=== PATIENT | male | born 1955 | race Caucasian/White ===

== ENCOUNTER 2020-11-16 14:31 | Observation (INO) | payer BC ==
--- NOTE | 2020-11-16 15:13 | ERPHSYRPT ---
- History of Present Illness Time Seen by Provider: 11/16/20 14:39 Source: patient, family Exam Limitations: no limitations Patient Subjective Stated Complaint: dizziness x 1 week Triage Nursing Assessment: pt to ED c/o new dizziness for one week. pt sees Dr Haney as pcp and he recommended pt come to ED for evalaution. pt denies new pain now. A&Ox3. ambulatory to room with SBA but states he usually falls to the L side. denies Hx stroke. Physician History: 64 years old male with a history of diabetes mellitus, chronic labyrinthitis/dizziness presented in the ER with increasing dizziness for almost 1 week especially with getting up and activity with tendency to fall on the left side without any actual fall. Denies any head injury but does have occasional headache mild to moderate. Denies any visual symptoms. No focal numbness tingling or weakness. No difficulty speech. Denies any chest pain palpitations or shortness of breath. Patient is sent in here by primary care for stroke work-up. Timing/Duration: week(s) (1), gradual onset, worse Severity: moderate Character of Deficits: other (Dizziness with tendency to fall on the left) Baseline/Normal Cognition: alert 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 Current Cognition: alert 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 Baseline Gait: walks w/o assistance Associated Symptoms: No confusion, No loss of consciousness, No nausea, No vo miting, No weakness, No insomnia, No muscle spasms, No numbness/tingling in legs/feet, No paresthesia, No ringing in ears, No slurred speech, No trouble walking Allergies/Adverse Reactions: No Known Drug Allergies Allergy (Verified 11/16/20 15:11) Home Medications: Acetaminophen [Tylenol 8 Hour] 650 mg PO Q4H PRN PRN 11/16/20 [History] Atorvastatin Calcium [Lipitor] 10 mg PO HS 11/16/20 [History] Ergocalciferol (Vitamin D2) [Vitamin D] 50,000 unit PO UD 11/16/20 [History] Fexofenadine HCl [Ana Maria] 180 mg PO BID 11/16/20 [History] Meloxicam [Mobic] 15 mg PO DAILY 11/16/20 [History] Sertraline HCl 100 mg PO DAILY 11/16/20 [History] Vit A/Vit C/Vit E/Zinc/Copper [Preservision Areds Softgel] 2 each PO DAILY 11/16/20 [History] Hx Tetanus, Diphtheria Vaccination/Date Given: Yes Hx Influenza Vaccination/Date Given: No Hx Pneumococcal Vaccination/Date Given: No Immunizations Up to Date: No Travel Risk - International Travel Have you traveled outside of the country in past 3 weeks: No - Coronavirus Screening Are you exhibiting any of the following symptoms?: No Close contact with a COVID-19 positive Pt in past 14-21 Days: No - Vaccine Status Have you recieved a Covid-19 vaccination: Yes [place] [employer]acer: Moderna - Vaccination Dates Date of 2cond Vaccination (if applicable): june - Review of Systems Constitutional: No Symptoms Eyes: No Symptoms Ears, Nose, & Throat: No Symptoms, Other (Chronic hearing loss) Respiratory: No Symptoms Cardiac: No Symptoms Abdominal/Gastrointestinal: No Symptoms Genitourinary Symptoms: No Symptoms Musculoskeletal: No Symptoms Skin: No Symptoms Neurological: Dizziness, Headache Psychological: No Symptoms Endocrine: No Symptoms Hematologic/Lymphatic: No Symptoms Immunological/Allergic: No Symptoms - Past Medical History Pertinent Past Medical History: Yes Neurological History: Other ENT History: No Pertinent History Cardiac History: No Pertinent History Respiratory History: Asthma, Sleep Apnea Endocrine Medical History: Diabetes Type II Musculoskeletal History: No Pertinent History GI Medical History: No Pertinent History History: No Pertinent History Psycho-Social History: Attention Deficit Disorder, Depression Male Reproductive Disorders: No Pertinent History Other Medical History: LABYRINTHITIS, L COLLES FX 2007; R CTS SURGERY, SEASONAL ALLERGIES - Past Surgical History Past Surgical History: Yes Neuro Surgical History: No Pertinent History Cardiac: No Pertinent History Respiratory: No Pertinent History Gastrointestinal: No Pertinent History Genitourinary: No Pertinent History Musculoskeletal: Orthopedic Surgery Male Surgical History: Vasectomy Other Surgical History: LEFT WRIST REPAIR. TONSILS ET ADNOIDS - Social History Smoking Status: Never smoker Exposure to second hand smoke: Yes Drug Use: none Patient Lives Alone: No - Nursing Vital Signs Nursing Vital Signs: Initial Vital Signs Temperature 96.7 F 11/16/20 14:48 Pulse Rate 85 11/16/20 14:48 Respiratory Rate 14 11/16/20 14:48 Blood Pressure 131/108 11/16/20 14:48 O2 Sat by Pulse Oximetry 96 11/16/20 14:48 Pain Scale Pain Intensity 0 - [place] Coma Scale Best Eye Response (Quentin): (4) open spontaneously Best Verbal Response ([place]): (5) oriented Best Motor Response ([place]): (6) obeys commands Quentin Total: 15 - Physical Exam General Appearance: no apparent distress, alert Eye Exam: left eye: abnormal pupil (More dilated than the right 1 but responding to light and accommodation), bilateral eye: normal inspection, EOMI Ears, Nose, Throat Exam: normal ENT inspection, TMs normal, pharynx normal, moist mucous membranes Neck Exam: normal inspection, non-tender, supple, full range of motion Respiratory: normal breath sounds, lungs clear Cardiovascular: regular rate/rhythm, normal heart sounds Gastrointestinal: soft, normal bowel sounds, No tenderness Back Exam: normal inspection, normal range of motion Extremity Exam: normal inspection, normal range of motion, pelvis stable Mental Status: alert, 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, 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 Exam: normal speech, No normal hearing, No facial asymmetry, No facial droop Coordination/Gait: normal finger to nose, normal gait, normal cerebellar function, negative Romberg's sign Motor/Sensory: no motor deficit, no sensory deficit, no pronator drift, negative Babinski's sign DTR: bicep (R): 2+, bicep (L): 2+, knee (R): 2+, knee (L): 2+ Skin Exam: normal color SpO2 Interpretation: normal SpO2: 96 O2 Delivery: Room Air Ordered Tests: Medication Summary Discontinued Medications Generic Name Dose Route Start Last Admin Trade Name Freq PRN Reason Stop Dose Admin Acetaminophen 650 mg 11/16/20 22:04 Tylenol 325 Mg PO 12/16/20 22:03 Q4H PRN PRN PAIN AND/OR FEVER Albuterol/Ipratropium 3 ml 11/16/20 22:04 Duoneb 0.5-3 Mg/3 Ml Neb IH 12/16/20 22:03 Q4HPRN PRN SHORTNESS OF BREATH/WHEEZING Aspirin 324 mg 11/16/20 17:40 11/16/20 18:34 Baby Aspirin 81 Mg Chew PO 11/16/20 17:41 324 mg STAT ONE Administration Ergocalciferol 50,000 unit 11/19/20 10:00 Vitamin D2 PO 12/19/20 09:59 WEEKLY SAY Insulin Human Lispro 0 unit 11/16/20 22:04 11/18/20 08:27 Humalog SQ 12/16/20 22:03 7 unit UD PRN Administration HYPERGLYCEMIA Insulin Human Regular 6 unit 11/16/20 17:39 11/16/20 18:34 Humulin R IV 11/16/20 17:40 6 unit STAT ONE Administration Insulin Human Regular Confirm 11/16/20 18:33 Humulin R Administered 11/16/20 18:34 Dose 6 unit .ROUTE .STK-MED ONE Loratadine 10 mg 11/17/20 10:00 11/18/20 10:02 Claritin 10 Mg PO 12/17/20 09:59 10 mg DAILY SAY Administration Meloxicam 15 mg 11/17/20 10:00 11/18/20 10:02 Meloxicam PO 12/17/20 09:59 15 mg DAILY SAY Administration Metformin HCl 1,000 mg 11/17/20 22:00 11/17/20 21:52 Glucophage 500 Mg PO 12/17/20 21:59 1,000 mg HS SAY Administration Morphine Sulfate 2 mg 11/16/20 22:04 Morphine Sulfate 2 Mg Inj IV 11/21/20 22:03 Q4H PRN PRN PAIN Multivitamins/Minerals 2 tab 11/17/20 10:00 11/18/20 10:02 Ocuvite Tablet PO 12/17/20 09:59 2 tab DAILY SAY Administration Ondansetron HCl 4 mg 11/16/20 22:04 Zofran 4 Mg/2 Ml Vial IV 12/16/20 22:03 Q6H PRN PRN NAUSEA/VOMITING Pantoprazole Sodium 40 mg 11/17/20 10:00 11/18/20 10:02 Protonix 40 Mg Iv IV 12/17/20 09:59 40 mg Q24H10 SAY Administration Scopolamine HBr 1.5 mg 11/17/20 10:00 11/17/20 11:14 Transderm Scop 1.5mg Patch TOP 12/17/20 09:59 1.5 mg Q72H SAY Administration Sertraline HCl 100 mg 11/17/20 10:00 11/18/20 10:02 Zoloft 50 Mg Tablet PO 12/17/20 09:59 100 mg DAILY SAY Administration Simvastatin 10 mg 11/17/20 22:00 11/17/20 21:53 Zocor 10mg PO 12/17/20 21:59 10 mg HS SAY Administration Lab/Rad Data: Laboratory Result Diagrams 11/16/20 15:50 11/16/20 15:50 Laboratory Results 11/16/20 11/16/20 11/16/20 Range/Units 21:15 19:29 18:10 WBC (4.0-10.5) K/mm3 RBC (4.1-5.6) M/mm3 Hgb (12.5-18.0) gm/dl Hct (42-50) % MCV (78-100) fl MCH (26-32) pg MCHC (32-36) g/dl RDW (11.5-14.0) % Plt Count (150-450) K/mm3 MPV (7.5-11.0) fl Gran % (36.0-66.0) % Eos # (Auto) (0-0.5) Absolute Lymphs (auto) (1.0-4.6) Absolute Monos (auto) (0.0-1.3) Lymphocytes % (24.0-44.0) % Monocytes % (0.0-12.0) % Eosinophils % (0.00-5.0) % Basophils % (0.0-0.4) % Absolute Granulocytes (1.4-6.9) Basophils # (0-0.4) Sodium (137-145) mmol/L Potassium (3.5-5.1) mmol/L Chloride (98-107) mmol/L Carbon Dioxide (22-30) mmol/L Anion Gap (5-15) MEQ/L BUN (9-20) mg/dL Creatinine (0.66-1.25) mg/dL Estimated GFR ML/MIN Glucose (74-106) mg/dL POC Glucometer 218 H (74 to 106) mg/dL Calcium (8.4-10.2) mg/dL Magnesium (1.6-2.3) mg/dL Total Bilirubin (0.2-1.3) mg/dL AST (17-59) U/L ALT (0-50) U/L Alkaline Phosphatase (38-126) U/L Troponin I < 0.012 (0.000-0.034) ng/mL Serum Total Protein (6.3-8.2) g/dL Albumin (3.5-5.0) g/dL SARS-CoV-2 (PCR) NEGATIVE (NEGATIVE) 11/16/20 11/16/20 11/16/20 Range/Units 17:37 15:50 15:50 WBC (4.0-10.5) K/mm3 RBC (4.1-5.6) M/mm3 Hgb (12.5-18.0) gm/dl Hct (42-50) % MCV (78-100) fl MCH (26-32) pg MCHC (32-36) g/dl RDW (11.5-14.0) % Plt Count (150-450) K/mm3 MPV (7.5-11.0) fl Gran % (36.0-66.0) % Eos # (Auto) (0-0.5) Absolute Lymphs (auto) (1.0-4.6) Absolute Monos (auto) (0.0-1.3) Lymphocytes % (24.0-44.0) % Monocytes % (0.0-12.0) % Eosinophils % (0.00-5.0) % Basophils % (0.0-0.4) % Absolute Granulocytes (1.4-6.9) Basophils # (0-0.4) Sodium (137-145) mmol/L Potassium (3.5-5.1) mmol/L Chloride (98-107) mmol/L Carbon Dioxide (22-30) mmol/L Anion Gap (5-15) MEQ/L BUN (9-20) mg/dL Creatinine (0.66-1.25) mg/dL Estimated GFR ML/MIN Glucose (74-106) mg/dL POC Glucometer (74 to 106) mg/dL Calcium (8.4-10.2) mg/dL Magnesium 2.0 (1.6-2.3) mg/dL Total Bilirubin (0.2-1.3) mg/dL AST (17-59) U/L ALT (0-50) U/L Alkaline Phosphatase (38-126) U/L Troponin I < 0.012 < 0.012 (0.000-0.034) ng/mL Serum Total Protein (6.3-8.2) g/dL Albumin (3.5-5.0) g/dL SARS-CoV-2 (PCR) (NEGATIVE) 11/16/20 11/16/20 Range/Units 15:50 15:50 WBC 8.6 (4.0-10.5) K/mm3 RBC 4.33 (4.1-5.6) M/mm3 Hgb 13.2 (12.5-18.0) gm/dl Hct 41.4 L (42-50) % MCV 95.6 (78-100) fl MCH 30.5 (26-32) pg MCHC 31.9 L (32-36) g/dl RDW 13.1 (11.5-14.0) % Plt Count 218 (150-450) K/mm3 MPV 10.7 (7.5-11.0) fl Gran % 68.8 H (36.0-66.0) % Eos # (Auto) 0.24 (0-0.5) Absolute Lymphs (auto) 1.69 (1.0-4.6) Absolute Monos (auto) 0.73 (0.0-1.3) Lymphocytes % 19.6 L (24.0-44.0) % Monocytes % 8.5 (0.0-12.0) % Eosinophils % 2.8 (0.00-5.0) % Basophils % 0.3 (0.0-0.4) % Absolute Granulocytes 5.93 (1.4-6.9) Basophils # 0.03 (0-0.4) Sodium 135 L (137-145) mmol/L Potassium 4.5 (3.5-5.1) mmol/L Chloride 97 L (98-107) mmol/L Carbon Dioxide 27 (22-30) mmol/L Anion Gap 15.3 H (5-15) MEQ/L BUN 25 H (9-20) mg/dL Creatinine 0.90 (0.66-1.25) mg/dL Estimated GFR > 60.0 ML/MIN Glucose 431 H (74-106) mg/dL POC Glucometer (74 to 106) mg/dL Calcium 9.6 (8.4-10.2) mg/dL Magnesium (1.6-2.3) mg/dL Total Bilirubin 0.20 (0.2-1.3) mg/dL AST 17 (17-59) U/L ALT 17 (0-50) U/L Alkaline Phosphatase 80 (38-126) U/L Troponin I (0.000-0.034) ng/mL Serum Total Protein 6.9 (6.3-8.2) g/dL Albumin 4.0 (3.5-5.0) g/dL SARS-CoV-2 (PCR) (NEGATIVE) - Progress Progress: unchanged, re-examined Progress Note: 11/16/20 17:46 He is made stroke activate, he is out of the window for TPA. Prompt CT head is obtained which is negative for any acute findings. Work-up otherwise showed no acute ST elevations are rhythm changes. Negative initial troponins. Patient has a blood sugar of 400s, given IV insulin. Otherwise grossly unremarkable chemistries. [facility] neurology consult is obtained, recommended observation telemetry admission with MRI/MRA and stroke work-up. He is given full dose aspirin. Plan discussed with patient who understand and agrees with it. Discussed with Dr. Sanchez and patient is admitted for observation. Discussed with .: Nadine, Other (Dr. Moon [facility] neurology) Will see patient in: hospital (observation) Counseled pt/family regarding: lab results, diagnosis, rad results - Departure Departure Disposition: Observation Clinical Impression: Dizziness, Stroke-like symptom Condition: Stable Critical Care Time: No
--- NOTE | 2020-11-16 15:26 | XRAY ---
Indication: Stroke. Multiple contiguous axial images obtained through the head without contrast. Comparison: None Age-appropriate global atrophy and minimal degenerative micro-ischemia bilaterally. No acute intracranial hemorrhage, abnormal extra-axial fluid collection, or mass effect. Fourth ventricle is midline without hydrocephalus. Crump-white matter differentiation preserved. Bony calvarium intact. Visualized paranasal sinuses and mastoid air cells are clear. Impression: Atrophy and degenerative micro-ischemia within normal limits for patient's age. No acute intracranial abnormalities.
[2020-11-16 15:58] LABS: Absolute Neutrophil Ct (ANC) 5.93 (1.4-6.9); BASOPHIL % 0.3 % (0.0-0.4); Basophil (Absolute #) 0.03 (0-0.4); Eosinophil % 2.8 % (0.00-5.0); Eosinophil (Absolute #) 0.24 (0-0.5); Hematocrit 41.4 % (42-50); Hemoglobin 13.2 gm/dl (12.5-18.0); Lymphocyte (Absolute #) 1.69 (1.0-4.6); Lymphocytes % 19.6 % (24.0-44.0); Mean Cell Volume 95.6 fl (78-100); Mean Corpuscular Hemoglobin 30.5 pg (26-32); Mean Corpuscular Hgb Concent. 31.9 g/dl (32-36); Mean Platelet Volume 10.7 fl (7.5-11.0); Monocyte (Absolute #) 0.73 (0.0-1.3); Monocytes % 8.5 % (0.0-12.0); Neutrophil % 68.8 % (36.0-66.0); Platelet Count 218 K/mm3 (150-450); Red Blood Count 4.33 M/mm3 (4.1-5.6); Red Cell Distribution Width 13.1 % (11.5-14.0); White Blood Count 8.6 K/mm3 (4.0-10.5)
[2020-11-16 16:13] LABS: ALKALINE PHOSPHATASE 80 U/L (38-126); ANION GAP 15.3 MEQ/L (5-15); BLOOD UREA NITROGEN 25 mg/dL (9-20); CHLORIDE 97 mmol/L (98-107); Calcium 9.6 mg/dL (8.4-10.2); Carbon Dioxide 27 mmol/L (22-30); EST GLOMERULAR FILTRATION RATE > 60.0 ML/MIN; Glucose 431 mg/dL (74-106); Potassium 4.5 mmol/L (3.5-5.1); SGOT/AST 17 U/L (17-59); SGPT/ALT 17 U/L (0-50); SODIUM 135 mmol/L (137-145); Total Protein 6.9 g/dL (6.3-8.2)
--- NOTE | 2020-11-16 16:25 | XRAY ---
Indication: Dizziness. Stroke. Comparison: None Portable chest slightly underinflated and clear. Heart not enlarged. Bony thorax intact. Impression: Nonacute chest.
[2020-11-16] MEDS ORDERED: HUMULIN R IV ONE (17:39)
[2020-11-16] MEDS ORDERED: BABY ASPIRIN 81 MG CHEW PO ONE (17:40)
[2020-11-16] MEDS ORDERED: HUMULIN R ONE (18:33)
[2020-11-16] MEDS ORDERED: Zofran 4 MG/2 ML VIAL IV PRN (22:04)
[2020-11-16] MEDS ORDERED: MORPHINE SULFATE 2 MG INJ IV PRN (22:04)
[2020-11-16] MEDS ORDERED: DUONEB 0.5-3 MG/3 ml Neb IH PRN (22:04)
[2020-11-16] MEDS ORDERED: TYLENOL 325 MG PO PRN (22:04)
[2020-11-17 04:58] LABS: Absolute Neutrophil Ct (ANC) 5.76 (1.4-6.9); BASOPHIL % 0.4 % (0.0-0.4); Basophil (Absolute #) 0.04 (0-0.4); Eosinophil % 3.5 % (0.00-5.0); Eosinophil (Absolute #) 0.32 (0-0.5); Hematocrit 42.3 % (42-50); Hemoglobin 13.5 gm/dl (12.5-18.0); Lymphocyte (Absolute #) 2.35 (1.0-4.6); Lymphocytes % 25.4 % (24.0-44.0); Mean Cell Volume 94.6 fl (78-100); Mean Corpuscular Hemoglobin 30.2 pg (26-32); Mean Corpuscular Hgb Concent. 31.9 g/dl (32-36); Mean Platelet Volume 10.9 fl (7.5-11.0); Monocyte (Absolute #) 0.79 (0.0-1.3); Monocytes % 8.5 % (0.0-12.0); Neutrophil % 62.2 % (36.0-66.0); Platelet Count 223 K/mm3 (150-450); Red Blood Count 4.47 M/mm3 (4.1-5.6); White Blood Count 9.3 K/mm3 (4.0-10.5)
[2020-11-17 05:17] LABS: ALBUMIN 3.7 g/dL (3.5-5.0); ALKALINE PHOSPHATASE 76 U/L (38-126); ANION GAP 12.7 MEQ/L (5-15); BLOOD UREA NITROGEN 20 mg/dL (9-20); CHLORIDE 100 mmol/L (98-107); Calcium 9.3 mg/dL (8.4-10.2); Carbon Dioxide 28 mmol/L (22-30); Creatinine 1 0.77 mg/dL (0.66-1.25); EST GLOMERULAR FILTRATION RATE > 60.0 ML/MIN; Glucose 249 mg/dL (74-106); SGOT/AST 21 U/L (17-59); SGPT/ALT 15 U/L (0-50); SODIUM 137 mmol/L (137-145); Total Protein 6.6 g/dL (6.3-8.2)
[2020-11-17 07:01] LABS: Appearance CLEAR (CLEAR); Bilirubin NEGATIVE (NEGATIVE); Blood NEGATIVE Ery/ul (0-5); Glucose >=500 mg/dL (NEGATIVE); Ketones TRACE (NEGATIVE); Leukocyte Esterase NEGATIVE (NEGATIVE); Nitrite NEGATIVE (NEGATIVE); Protein,Urine Dip NEGATIVE (Negative); Specific Gravity 1.017 (1.005-1.025); Urobilinogen NEGATIVE mg/dL (0-1)
[2020-11-17 07:06] LABS: Bacteria NONE SEEN /HPF (NEGATIVE)
[2020-11-17] MEDS ORDERED: NON-FORMULARY ITEM (Meloxicam [Mobic] 15 MG) PO SCH (10:00)
[2020-11-17] MEDS ORDERED: VIT C PO SCH (10:00)
[2020-11-17] MEDS ORDERED: ZINC PO SCH (10:00)
[2020-11-17] MEDS ORDERED: NON-FORMULARY ITEM (Fexofenadine Hcl [Allegra] 180 MG) PO SCH (10:00)
[2020-11-17] MEDS ORDERED: COPPER PO SCH (10:00)
[2020-11-17] MEDS ORDERED: Transderm Scop 1.5MG Patch TOP SCH (10:00)
[2020-11-17] MEDS ORDERED: VIT E PO SCH (10:00)
[2020-11-17] MEDS ORDERED: VIT A PO SCH (10:00)
[2020-11-17] MEDS ORDERED: NON-FORMULARY ITEM (Sertraline Hcl [Sertraline Hcl] 100 MG) PO SCH ×2 (10:00)
--- NOTE | 2020-11-17 11:01 | XRAY ---
Indication: Dizziness. Stroke symptoms. Two-dimensional sonogram and color Doppler imaging of the carotid arteries of the neck performed. Comparison: None Examination of the right carotid circulation demonstrates very minimal soft plaquing at the level of bulb. Remaining common carotid, internal carotid, and external carotid arteries are widely patent. PSV of the CCA is 84 cm/s. PSV of the ICA is 79 cm/s. ICA/CCA ratio is 0.9. Normal antegrade vertebral artery flow. Examination of the left breast circulation demonstrates very minimal tiny calcified plaquing in the common carotid artery and minimal soft plaquing at the level of the bulb and origin external carotid artery. Remaining internal carotid artery widely patent. PSV of the CCA is 94 cm/s. PSV of the ICA is 72 cm/s. ICA/CCA ratio is 0.8. Normal antegrade vertebral artery flow. Impression: Very minimal arteriosclerotic plaquing bilaterally as detailed. Velocity measurements and ratios are also negative for hemodynamically significant flow-limiting stenosis.
[2020-11-17] MEDS: CLARITIN 10 MG PO SCH (11:10)
[2020-11-17] MEDS: ZOLOFT 50 MG TABLET PO SCH (11:10)
[2020-11-17] MEDS: MELOXICAM PO SCH (11:10)
[2020-11-17] MEDS: PROTONIX 40 MG IV IV SCH (11:10)
[2020-11-17] MEDS: Ocuvite Tablet PO SCH (11:11)
[2020-11-17] MEDS: HUMALOG SQ PRN ×2 (12:39→21:55)
--- NOTE | 2020-11-17 14:58 | XRAY ---
Indication: Dizziness, nausea, and unsteady gait. Possible CVA. Sagittal, coronal, and axial MRI brain performed without contrast using T1, T2, FLAIR, diffusion, and ADC sequences. Comparison: None Age-appropriate global atrophy and a few periventricular petechial degenerative micro-ischemia signal. No acute intracranial hemorrhage, abnormal extra-axial fluid collection, or mass effect. Diffusion images are negative for restricted signal. Fourth ventricle is midline without hydrocephalus. 7/8 cranial nerve complex bilaterally symmetric. Normal flow void signal within the major intracerebral circulation. Normal-appearing craniocervical junction and sella turcica. Impression: 1. Atrophy and very minimal degenerative micro-ischemia within normal limits for patient's age. 2. No acute intracranial abnormalities or evidence for evolving large vessel territorial stroke.
--- NOTE | 2020-11-17 15:02 | XRAY ---
Indication: Dizziness, nausea, and unsteady gait. Possible CVA. Multi-slab 3-D [id number] MRA brain performed. Comparison: None MRA neck reported separately. Distal internal carotid arteries are bilaterally symmetric without critical stenosis, obstruction, or AV malformation. Normal carotid terminus with normal branching A1 and M1 segments bilaterally. Anatomic variant for origin of the right posterior cerebral artery. More distal anterior cerebral, middle cerebral and left posterior to indicating arteries are normal in MRA appearance. Normal MRA appearance to the basilar artery, left posterior cerebral, and left/right superior cerebellar arteries. Impression: Anatomic variant for origin right posterior cerebral artery. Remaining MRA brain is negative.
--- NOTE | 2020-11-17 15:04 | XRAY ---
Indication: Dizziness, nausea, and unsteady gait. Possible CVA. Multi-slab 3-D [id number] MRA neck performed. Comparison: None. There is carotid ultrasound of the same day. Normal MRA appearance to the common carotid, carotid bulb, internal carotid, and external carotid arteries bilaterally. Vertebral arteries demonstrates a dominant right vertebral artery. No critical stenosis, obstruction, or AV malformation. MRA brain reported separately. Impression: MRA neck is negative.
[2020-11-17] MEDS ORDERED: Glucophage 500 MG PO SCH (22:00)
[2020-11-17] MEDS ORDERED: Zocor 10MG PO SCH (22:00)
[2020-11-17] MEDS ORDERED: NON-FORMULARY ITEM (Atorvastatin Calcium [Lipitor] 10 MG) PO SCH (22:00)
[2020-11-18 07:56] VITALS: BP 115/66; PULSE 73; O2SAT 96
[2020-11-18] MEDS: HUMALOG SQ PRN (08:27)
[2020-11-18] MEDS: Ocuvite Tablet PO SCH (10:02)
[2020-11-18] MEDS: MELOXICAM PO SCH (10:02)
[2020-11-18] MEDS: CLARITIN 10 MG PO SCH (10:02)
[2020-11-18] MEDS: PROTONIX 40 MG IV IV SCH (10:02)
[2020-11-18] MEDS: ZOLOFT 50 MG TABLET PO SCH (10:02)
[2020-11-19] MEDS ORDERED: VITAMIN D2 PO SCH (10:00)
--- NOTE | 2020-11-20 13:47 | ECHO ---
Transthoracic echocardiographic examination and color Doppler was done on 11/17/2020. INDICATION: Dizzy spells, transient ischemic attack symptoms. IMPRESSION: 1) NO REGIONAL WALL MOTION ABNORMALITY. ESTIMATED GLOBAL LEFT VENTRICULAR EJECTION FRACTION BETWEEN 60 AND 65%. 2) TRACE MITRAL REGURGITATION. 3) TRACE TRICUSPID REGURGITATION. RIGHT VENTRICULAR SYSTOLIC PRESSURE OF 24 MMHg.. 4) LEFT VENTRICULAR HYPERTROPHY. The left ventricle is visualized and demonstrated adequate motion of all the segments. Estimated global left ventricular ejection fraction of around 60 to 65%. There is concentric left ventricular hypertrophy. The mitral valve is seen and this opens adequately. There is trace mitral regurgitation. Left atrium is normal. The aortic valve opens adequately. The right side chambers are normal with normal right ventricular contractility. There is trace tricuspid regurgitation. The right ventricular systolic pressure of 24 mmHg
--- NOTE | 2020-11-22 09:48 | DS ---
DISCHARGE DIAGNOSIS: ACUTE LABYRINTHITIS. HOSPITAL COURSE: The patient is a 64 year-old white male patient who reports he has had a long history of labyrinthitis issues. He reports that his grandfather of a stroke and his father had trouble with multiple strokes and he is concerned about his vascular flow. The patient did have multiple evaluations of his head and neck with MRI, MRA showing no blood flow restrictions in the area. The patient has been using a Scopolamine patch but he reports that it has not been much help to him. He does get nauseated upon laying down but he reports he just lays there for a while and the nausea will clear. He reports that his labyrinthitis is actually not as worse as in the past but he has just been concerned due to his concern about a stroke. The patient has significant problems with his diabetes and has been under poor control. He is just taking Glucophage 1,000 mg at night as his only diabetic medication. The patient was found to have an A1C of 11.16. He has been on sliding scale coverage while he has been in here with sugars down in the 200 range but initially was over 400. We instructed him now to take his Glucophage 1,000 mg twice a day. His primary care physician is Dr. Markus Cortez in [place] and they will call for treatment of his diabetes and he will seek a neurologic consult for tilt table testing upon release. He will see Dr. Cortez in the next week. His other evaluations included metabolic panel which was essentially normal other than the sugar. UA was normal. CBC was normal. Troponin was less than 0.012. His kidney functions are still good with BUN 20, creatinine 0.77. The patient has been on telemetry during his stay and has been in sinus rhythm essentially the whole visit but he does have some minimal changes in the EKG. He had an echocardiogram which is still pending at this time and will not be available by the end of this weekend. 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
--- NOTE | 2020-11-22 16:30 | PCM.SSS ---
History of Present Illness - Chief Complaint Chief Complaint: Dizziness, stroke-like symptoms Date: 11/17/20 History of Present Illness: is a 64 year old male. Pt. has had a long history of vertigo intermittently and several work ups have not yielded any identifiably treatable cause, pt. notes on this episode has lasted nearly a week and seemed different therefore he presented to er for evaluation and no etiology was noted, he was admitted for observation and possible further evaluation. - Review of Systems Constitutional: No Fever, No Chills Eyes: No Symptoms Ears, Nose, & Throat: No Symptoms Respiratory: No Cough, No Short Of Breath Cardiac: No Chest Pain, No Edema, No Syncope Abdominal/Gastrointestinal: No Abdominal Pain, No Nausea, No Vomiting, No Diarrhea Genitourinary Symptoms: No Dysuria Musculoskeletal: No Back Pain, No Neck Pain Skin: No Rash Neurological: Dizziness, Gait Changes (these are chronic) Psychological: No Symptoms Endocrine: No Symptoms Hematologic/Lymphatic: No Symptoms Immunological/Allergic: No Symptoms Medications & Allergies Home Medications: Home Medication List Acetaminophen [Tylenol 8 Hour] 650 mg PO Q4H PRN PRN 11/16/20 [History Confirmed 11/16/20] Atorvastatin Calcium [Lipitor] 10 mg PO HS 11/16/20 [History Confirmed 11/16/20] Ergocalciferol (Vitamin D2) [Vitamin D] 50,000 unit PO UD 11/16/20 [History Confirmed 11/16/20] Fexofenadine HCl [Ana Maria] 180 mg PO BID 11/16/20 [History Confirmed 11/16/20] Meloxicam [Mobic] 15 mg PO DAILY 11/16/20 [History Confirmed 11/16/20] Sertraline HCl 100 mg PO DAILY 11/16/20 [History Confirmed 11/16/20] Vit A/Vit C/Vit E/Zinc/Copper [Preservision Areds Softgel] 2 each PO DAILY 11/16/20 [History Confirmed 11/16/20] Meclizine HCl 25 mg [Antivert 25 mg] 25 mg PO QID PRN #28 tablet 11/18/20 [Rx] Metformin HCl 500 mg [Glucophage 500 MG] 1,000 mg PO BIDWM #0 11/18/20 [Rx Confirmed 11/16/20] Ondansetron HCl [Zofran] 4 mg PO Q6H PRN #28 tablet 11/18/20 [Rx] Allergies/Adverse Reactions: Allergies Allergy/AdvReac Type Severity Reaction Status Date / Time No Known Drug Allergies Allergy Verified 11/16/20 15:11 - Past Medical History Past Medical History: Yes Neurological History: Other ENT History: No Pertinent History Cardiac History: No Pertinent History Respiratory History: Asthma, Sleep Apnea Endocrine Medical History: Diabetes Type II Musculoskelatal History: No Pertinent History GI Medical History: No Pertinent History History: No Pertinent History Pyscho-Social History: Attention Deficit Disorder, Depression Male Reproductive Disorders: No Pertinent History Comment: LABYRINTHITIS, L COLLES FX 2007; R CTS SURGERY, SEASONAL ALLERGIES - Past Surgical History Past Surgical History: Yes Neuro Surgical History: No Pertinent History Cardiac History: No Pertinent History Respiratory Surgery: No Pertinent History GI Surgical History: No Pertinent History Genitourinary Surgical Hx: No Pertinent History Musculskeletal Surgical Hx: Orthopedic Surgery Male Surgical History: Vasectomy Other Surgical History: LEFT WRIST REPAIR. TONSILS ET ADNOIDS - Social History Smoking Status: Never smoker Exposure to second hand smoke: Yes Alcohol: None Drug Use: none - Physical Exam General Appearance: no apparent distress, alert Neurologic Exam: alert, 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, cooperative, normal mood/affect, nml cerebellar function, sensation nml, No motor deficits Eye Exam: PERRL/EOMI, eyes nml inspection Ears, Nose, Throat Exam: normal ENT inspection, TMs normal, pharynx normal, moist mucous membranes Neck Exam: normal inspection, non-tender, supple, full range of motion Respiratory Exam: normal breath sounds, lungs clear, No respiratory distress Cardiovascular Exam: regular rate/rhythm, normal heart sounds, normal peripheral pulses Gastrointestinal/Abdomen Exam: soft, normal bowel sounds, No tenderness, No mass Back Exam: normal inspection, normal range of motion, No CVA tenderness, No v ertebral tenderness Extremity Exam: normal inspection, normal range of motion, pelvis stable Skin Exam: normal color, warm, dry, No rash Lymphatic Exam: No adenopathy Assessment/Plan (1) Dizziness Status: Acute Code(s): R42 - DIZZINESS AND GIDDINESS (2) Stroke-like symptom Status: Acute Code(s): R29.90 - UNSPECIFIED SYMPTOMS AND SIGNS INVOLVING THE NERVOUS SYSTEM Hospital Summary - Hospital Course Hospital Course: Pt. admitted and monitered, further evaluation including, echo, carotid doppler, MRI and MRA were performed all of which were within normal limits and patient noted he was feeling fine and ready to be discharged to home to treat these symptoms at home as he has in the past. - Vitals & Intake/Output Vital Signs: Vital Signs Temperature 98.1 F 11/18/20 07:55 Pulse Rate 73 11/18/20 07:55 Respiratory Rate 18 11/18/20 07:55 Blood Pressure 115/66 11/18/20 07:55 O2 Sat by Pulse Oximetry 96 11/19/20 20:10 - Lab Result Diagrams: 11/17/20 04:20 11/17/20 04:20 - Discharge Discharge Date: 11/17/20 Disposition: Home, Self-Care Condition: Stable Prescriptions: New Meclizine HCl 25 mg [Antivert 25 mg] 25 mg PO QID PRN #28 tablet PRN Reason: Dizziness Ondansetron HCl [Zofran] 4 mg PO Q6H PRN #28 tablet PRN Reason: Nausea/Vomiting Continue Fexofenadine HCl [Ana Maria] 180 mg PO BID Atorvastatin Calcium [Lipitor] 10 mg PO HS Meloxicam [Mobic] 15 mg PO DAILY Ergocalciferol (Vitamin D2) [Vitamin D] 50,000 unit PO UD Sertraline HCl 100 mg PO DAILY Vit A/Vit C/Vit E/Zinc/Copper [Preservision Areds Softgel] 2 each PO DAILY Acetaminophen [Tylenol 8 Hour] 650 mg PO Q4H PRN PRN PRN Reason: Pain Changed Metformin HCl 500 mg [Glucophage 500 MG] 1,000 mg PO BIDWM #0 Instructions: Type 2 Diabetes, Dizziness, Nonvertigo, (DC), Meclizine, Metformin, Ondansetron Additional Instructions: Use walker or cane to assist with ambulation and controlling vertigo. Follow up with: SHASHI GRIFFITHS [Primary Care Provider] - Call for Appointment (Call Dr. Griffiths Friday to make appointment to see him next week. Ask Dr. Griffiths for referral to neurologist) Forms: Discharge Instructions
== END 2020-11-18 11:46 | disposition home or self-care (01) ==
LOC: ED 14:31 → MED SURG 22:02
PROVIDERS: ADMIT Family Medicine; ATTEND Family Medicine
DX: H83.09 Labyrinthitis, unspecified ear (principal); R42 Dizziness and giddiness; R11.2 Nausea with vomiting, unspecified; E11.65 Type 2 diabetes mellitus with hyperglycemia; Z20.828 Contact with and (suspected) exposure to other viral communicable diseases; Z79.899 Other long term (current) drug therapy; G47.30 Sleep apnea, unspecified
CPT/HCPCS: 36000; 36415; 70450; 70544; 70549; 70553; 71045; 80053; 81001; 82947; 83036; 83735; 84484; 85025; 93005; 93041; 93268; 93306; 93880; 96374; 99284; G0378; Q3014; U0003; J1815; J1817; A9270-GY